=== PATIENT | female | born 1975 | race African-American/Black ===

== ENCOUNTER 2018-03-02 14:04 | Emergency (ER) | payer OTHER ==
[~2018-03-02] VITALS: Ht 172.7 cm; Wt 103.1 kg
[~2018-03-02 14:04] MED LIST: AMBIEN10 MG PO; DAILY VITAMIN1 EAC8 PO; FLEXERIL10 MG PO; LITHIUM CARBON450 MG PO; LITHOBID300 MG PO; MOTRIN800 MG PO; NAPROSYN500 MG PO; QUETIAPINE FUM100 MG PO; QUETIAPINE FUM300 MG PO; ZOLPIDEM TARTRAT5 MG PO; ZYPREXA ZYDIS20 MG PO; ZYPREXA15 MG PO
[2018-03-02 17:32] VITALS: BP 159/110
== END 2018-03-02 17:40 | disposition home or self-care (01) ==
LOC: EME 14:04
DX: T56.891A Toxic effect of other metals, accidental (unintentional), initial encounter (principal); F17.200 Nicotine dependence, unspecified, uncomplicated; F32.9 Major depressive disorder, single episode, unspecified; F43.10 Post-traumatic stress disorder, unspecified; F20.9 Schizophrenia, unspecified
CPT/HCPCS: 80178; 99281; 99284

== ENCOUNTER 2018-03-29 12:18 | Emergency (ER) | payer OTHER ==
[~2018-03-29] VITALS: Ht 172.7 cm; Wt 105.8 kg
[2018-03-29 12:46] LABS: APPEARANCE CLEAR ((CLEAR)); BILIRUBIN NEGATIVE; BLOOD NEGATIVE; COLOR AMBER ((YELLOW)); GLUCOSE (STRIP) NEGATIVE; KETONES 5; LEUKOCYTES NEGATIVE; NITRITE NEGATIVE; PROTEIN (STRIP) 30; SPECIFIC GRAVITY 1.015 (1.000-1.030); UCUL ADDED? NO
[2018-03-29 12:47] LABS: HEMATOCRIT 36.8 % (36.0-46.0); HEMOGLOBIN 12.4 G/DL (11.9-15.5); MCH 27.6 PG (29.0-34.0); MCHC 33.7 G/DL (30.0-36.0); PLATELET COUNT 397 K/uL (156-360); RBC DIS.WIDTH-CV 15.7 % (11.8-14.6); RBC DIS.WIDTH-SD 47.5 % (39-53); RED BLOOD COUNT 4.49 M/uL (3.80-5.20)
[2018-03-29 13:24] LABS: ALBUMIN 4.6 G/DL (3.2-4.8); ALKALINE PHOSPHATASE 156 IU/L (3-129); ALT (GPT) 21 IU/L (3-49); AST (GOT) 22 IU/L (2-34); CHLORIDE 103 MEQ/L (99-109); CREATININE 0.9 MG/DL (0.6-1.3); GFR ESTIMATE (CALCULATED) > 59 mL/min/; GLUCOSE 127 mg/dL (70-99); SODIUM 139 MEQ/L (136-147); TOTAL BILIRUBIN 0.4 MG/DL (0.0-1.0); TOTAL PROTEIN 7.2 G/DL (6.4-8.3); UREA NITROGEN (BUN) 8 mg/dL (9-23)
[2018-03-29 13:34] LABS: LIPASE 5 U/L (1.0-51.0)
[2018-03-29 14:00] LABS: QUANTITATIVE HCG < 4.0 MIU/ML
[2018-03-29] MEDS ORDERED: ZOFRAN ODT4 MG PO (15:16)
[2018-03-29] MEDS ORDERED: CITRATE OF MAG296 ML PO (15:16)
[2018-03-29] MEDS ORDERED: BENTYL20 MG PO (15:16)
[2018-03-29 15:25] VITALS: BP 134/96
== END 2018-03-29 15:27 | disposition home or self-care (01) ==
LOC: EME 12:18
DX: K52.9 Noninfective gastroenteritis and colitis, unspecified (principal); F31.9 Bipolar disorder, unspecified; Z90.710 Acquired absence of both cervix and uterus; F43.10 Post-traumatic stress disorder, unspecified; Z87.891 Personal history of nicotine dependence
CPT/HCPCS: 74176; 80053; 81003; 83690; 84702; 85027; 99281; 99284; J2405